=== PATIENT | male | born 1965 | race Caucasian/White ===

== ENCOUNTER 2018-07-03 07:41 | Inpatient (IN) | payer OTHER | END 2018-07-06 09:31 | disposition home or self-care (01) | LOC: YASAS 07:41 → Y6N 09:42 ==

== ENCOUNTER 2018-10-25 12:02 | Inpatient (IN) | payer OTHER ==
[2018-10-25 12:25] VITALS: BMI 25.9
--- NOTE | 2018-10-25 13:45 | HP ---
COWS - Scale Resting Pulse: 1= [place] 81-100 Sweatin= Chills/Flushing Restless Observation: 1= Difficult to Sit Still Pupil Size: 0= Normal to Room Light Bone or Joint Aches: 1= Mild Discomfort Runny Nose/ Eye Tearin= Runny Nose/Eyes GI Upset > 30mins: 3= Vomiting/Diarrhea Tremor Observation: 1= Tremor [place], Not Seen Yawning Observation: 1= 1-2x During Session Anxiety or Irritability: 1=Feels Anxious/Irritable Goose Flesh Skin: 0=Smooth Skin COWS Score: 12 CIWA Score - Admission Criteria OASAS Guidelines: Admission for Medically Managed Detox: Requires at least one of the followin. CIWA greater than 12 2. Seizures within the past 24 hours 3. Delirium tremens within the past 24 hours 4. Hallucinations within the past 24 hours 5. Acute intervention needed for co occurring medical disorder 6. Acute intervention needed for co occurring psychiatric disorder 7. Severe withdrawal that cannot be handled at a lower level of care (continued vomiting, continued diarrhea, abnormal vital signs) requiring intravenous medication and/or fluids 8. Admission ROS [facility] Chief Complaint: heroin detox Allergies/Adverse Reactions: Allergies Allergy/AdvReac Type Severity Reaction Status Date / Time No Known Allergies Allergy Verified 10/25/18 12:18 History of Present Illness: Patient is a 53 yo M with no known PMHx, presenting here for heroin detox. Sniffs 15 bags a day over the last couple of months. Denies IV drug use. Last use this morning, about 5 bags. Says he was clean for 2 years and relapsed on Mothers day when his mother . Never overdosed. Does not carry a narcan pen with him. Smokes 1 PPD. currently unemployed. Lives in an apartment with no his girlfriend. - Ebola screening Have you traveled outside of the country in the last 21 days: No Have you had contact with anyone from an Ebola affected area: No Do you have a fever: No - Review of Systems Constitutional: Loss of Appetite, Unintentional Wgt. Loss Respiratory: denies: Cough, Shortness of Breath, Wheezing Cardiac: denies: Chest Pain, Palpitations Patient History - Patient Medical History Hx Anemia: No Hx Asthma: No Hx Chronic Obstructive Pulmonary Disease (COPD): No Hx Cancer: No Hx Cardiac Disorders: No Hx Congestive Heart Failure: No Hx Hypertension: No Hx Hypercholesterolemia: No Hx Pacemaker: No HX Cerebrovascular Accident: No Hx Seizures: No Hx Dementia: No Hx Diabetes: No Hx Gastrointestinal Disorders: No Hx Liver Disease: No Hx Genitourinary Disorders: No Hx Sexually Transmitted Disorders: No Hx Renal Disease (ESRD): No Hx Thyroid Disease: No Hx Human Immunodeficiency Virus (HIV): No (last 04/25 negative) Hx Hepatitis C: No Hx Depression: No Hx Suicide Attempt: No Hx Bipolar Disorder: No Hx Schizophrenia: No - Patient Surgical History Past Surgical History: No Hx Neurologic Surgery: No Hx Cataract Extraction: No Hx Cardiac Surgery: No Hx Lung Surgery: No Hx Breast Surgery: No Hx Breast Biopsy: No Hx Abdominal Surgery: No Hx Appendectomy: No Hx Cholecystectomy: No Hx Genitourinary Surgery: No Hx Section: No Hx Orthopedic Surgery: No Anesthesia Reaction: No - PPD History Date: 07/05/18 Results: 0 mm - Smoking Cessation Smoking history: Current every day smoker Have you smoked in the past 12 months: Yes Aproximately how many cigarettes per day: 20 Hx Chewing Tobacco Use: No Initiated information on smoking cessation: Yes 'Breaking Loose' booklet given: 10/25/18 - Substances abused Heroin Substance route: Inhalation Frequency: Daily Amount used: 15 bags Age of first use: 18 Date of last use: 10/25/18 Family Disease History - Family Disease History Family Disease History: Other: Mother (dawood,) Admission Physical Exam BHS - Vital Signs Vital Signs: Vital Signs - 24 hr 10/25/18 12:19 Temperature 97.3 F L Pulse Rate 66 Respiratory 20 Rate Blood Pressure 116/75 - Physical General Appearance: Yes: No Apparent Distress Respiratory: Yes: Lungs Clear, No Respiratory Distress, No Accessory Muscle Use Cardiology: Yes: Regular Rhythm, S1, S2 Abdominal: Yes: Non Tender, Soft Extremities: No: Swelling - Diagnostic (1) Heroin abuse Current Visit: Yes Status: Acute (2) Weight loss Current Visit: No Status: Acute (3) Nicotine dependence Current Visit: No Status: Chronic Qualifiers: Nicotine product type: cigarettes Substance use status: uncomplicated Qualified Code(s): F17.210 - Nicotine dependence, cigarettes, uncomplicated Breathalyzer - Breathalyzer Breathalyzer: 0 Urine Drug Screen - Test Device Lot number: [id number] Expiration date: 07/07/20 - Control Is test valid?: Yes - Results Drug screen NEGATIVE: Yes Urine drug screen results: MOP-Opiates, OXY-Oxycodone Inpatient Rehab Admission - Rehab Decision to Admit Inpatient rehab admission?: No
[2018-10-25] MEDS ORDERED: BISMUTH SUBSALICYLATE 524 MG/30 ML UD PO PRN (14:05)
[2018-10-25] MEDS ORDERED: MAG HYDROX/AL HYDROX/SIMETH 30 ML UNIT-DOSE CUP PO PRN (14:05)
[2018-10-25] MEDS ORDERED: MAGNESIUM HYDROX 2400MG/30ML ORAL SUSPENSION 30 ML CUP PO PRN (14:05)
[2018-10-25] MEDS ORDERED: MENTHOL/PHENOL 1 EACH UD MM PRN (14:05)
[2018-10-25] MEDS ORDERED: ACETAMINOPHEN 325 MG TABLET (FP) PO PRN ×2 (14:05)
[2018-10-25] MEDS ORDERED: cloNIDine HCL 0.1 MG TABLET PO PRN (14:05)
[2018-10-25] MEDS ORDERED: IBUPROFEN 400 MG TABLET (FP) PO PRN (14:05)
[2018-10-25] MEDS ORDERED: MAGNESIUM CITRATE 300 ML BOTTLE PO PRN (14:05)
[2018-10-25] MEDS ORDERED: NICOTINE POLACRILEX 4 MG GUM BUC PRN (14:09)
--- NOTE | 2018-10-25 14:13 | PN ---
Teaching Attending Note Name of Resident: Yasmani Salgado ATTENDING PHYSICIAN STATEMENT I saw and evaluated the patient. I reviewed the resident's note and discussed the case with the resident. I agree with the resident's findings and plan as documented. SUBJECTIVE: 53 yo here for heroin detox- 15 bags/day IH, no OD, no narcan kit. Relapsed 3 months ago. wants to stop. OBJECTIVE: Vital Signs - 24 hr 10/25/18 12:19 Temperature 97.3 F L Pulse Rate 66 Respiratory 20 Rate Blood Pressure 116/75 alert and oriented tremulous ASSESSMENT AND PLAN: Opioid use disorder- start methadone detox protocol
[2018-10-25] MEDS ORDERED: METHADONE HCL 10 MG TABLET (FOR DETOX USE ONLY) PO ONE (15:00)
[2018-10-25] MEDS: hydrOXYzine PAMOATE 25 MG CAPSULE (FP) PO PRN ×2 (15:26→22:21)
[2018-10-25 17:16] LABS: ALBUMIN 4.3 g/dl (3.4-5.0); BILIRUBIN,TOTAL 0.8 mg/dL (0.2-1); BLOOD UREA NITROGEN 9.6 mg/dL (7-18); CALCIUM 9.5 mg/dL (8.5-10.1); CREATININE 0.8 mg/dL (0.55-1.3); POTASSIUM 4.2 mmol/L (3.5-5.1); TOT PROT 7.7 g/dl (6.4-8.2)
[2018-10-25 17:26] LABS: HEMATOCRIT 44.3 % (35.4-49); HEMOGLOBIN 14.8 GM/dL (11.7-16.9); MCH 28.5 pg (25.7-33.7); MCHC 33.4 g/dl (32.0-35.9); MEAN CELL VOLUME 85.3 fl (80-96); PLATELET COUNT 282 K/MM3 (134-434); RBC 5.19 M/mm3 (4.00-5.60); RDW 14.2 % (11.9-15.9); WHITE BLOOD COUNT 9.7 K/mm3 (4.0-10.0)
[2018-10-25] MEDS: METHOCARBAMOL 500 MG TABLET PO PRN (22:21)
[2018-10-25] MEDS: THIAMINE HCL 100 MG TABLET (FP) PO SCH (22:21)
[2018-10-26] MEDS ORDERED: METHADONE HCL 10 MG TABLET (FOR DETOX USE ONLY) ONE (08:50)
[2018-10-26] MEDS ORDERED: METHADONE HCL 5 MG TABLET (FOR DETOX USE ONLY) ONE (08:51)
[2018-10-26] MEDS ORDERED: METHADONE (DETOX) 20 MG, METHADONE (DETOX) 5 MG PO ONE (10:00)
[2018-10-26] MEDS: PRENATAL VITAMINS W/ FOLIC ACID TABLET (FP) PO SCH (10:25)
--- NOTE | 2018-10-26 14:44 | PN ---
BHS COWS - Scale Resting Pulse: 0= [place] 80 or Below Sweatin= Chills/Flushing Restless Observation: 0= Sits Still Pupil Size: 1= Pupils >than Normal Bone or Joint Aches: 1= Mild Discomfort Runny Nose/ Eye Tearin= Nasal Congestion GI Upset > 30mins: 1= Stomach Cramp Tremor Observation of Outstretched Hands: 2= Slight Tremor Visible Yawning Observation: 1= 1-2x During Session Anxiety or Irritability: 2=Irritable/Anxious Goose Flesh Skin: 3=Piloerection COWS Score: 13 BHS Progress Note (SOAP) Subjective: body aches tremor anxiety Objective: 11/02/18 09:03 Vital Signs Temperature 97.4 F L 10/30/18 07:07 Pulse Rate 80 10/30/18 07:07 Respiratory Rate 18 10/30/18 07:07 Blood Pressure 90/55 L 10/30/18 07:07 O2 Sat by Pulse Oximetry (%) Laboratory Last Values WBC 9.7 K/mm3 (4.0-10.0) 10/25/18 14:45 RBC 5.19 M/mm3 (4.00-5.60) 10/25/18 14:45 Hgb 14.8 GM/dL (11.7-16.9) 10/25/18 14:45 Hct 44.3 % (35.4-49) 10/25/18 14:45 MCV 85.3 fl (80-96) 10/25/18 14:45 MCH 28.5 pg (25.7-33.7) 10/25/18 14:45 MCHC 33.4 g/dl (32.0-35.9) 10/25/18 14:45 RDW 14.2 % (11.9-15.9) 10/25/18 14:45 Plt Count 282 K/MM3 (134-434) 10/25/18 14:45 MPV 9.0 fl (7.5-11.1) 10/25/18 14:45 Platelet Comment 10/25/18 14:45 Sodium 140 mmol/L (136-145) 10/25/18 14:45 Potassium 4.2 mmol/L (3.5-5.1) 10/25/18 14:45 Chloride 101 mmol/L (98-107) 10/25/18 14:45 Carbon Dioxide 33 mmol/L (21-32) H 10/25/18 14:45 Anion Gap 5 MMOL/L (8-16) L 10/25/18 14:45 BUN 9.6 mg/dL (7-18) 10/25/18 14:45 Creatinine 0.8 mg/dL (0.55-1.3) 10/25/18 14:45 Est GFR (CKD-EPI)AfAm 119.88 10/25/18 14:45 Est GFR (CKD-EPI)NonAf 103.43 10/25/18 14:45 Random Glucose 86 mg/dL (74-106) 10/25/18 14:45 Calcium 9.5 mg/dL (8.5-10.1) 10/25/18 14:45 Total Bilirubin 0.8 mg/dL (0.2-1) 10/25/18 14:45 AST 20 U/L (15-37) 10/25/18 14:45 ALT 41 U/L (13-61) 10/25/18 14:45 Alkaline Phosphatase 60 U/L (45-117) 10/25/18 14:45 Total Protein 7.7 g/dl (6.4-8.2) 10/25/18 14:45 Albumin 4.3 g/dl (3.4-5.0) 10/25/18 14:45 RPR Titer Nonreactive (NONREACTIVE) 10/25/18 14:45 lab noted Assessment: 11/02/18 09:03 withdrawal sx Plan: continue detox
[2018-10-26] MEDS: MELATONIN 5 MG TABLETS PO PRN (22:37)
[2018-10-26] MEDS: THIAMINE HCL 100 MG TABLET (FP) PO SCH (22:37)
[2018-10-26] MEDS: hydrOXYzine PAMOATE 25 MG CAPSULE (FP) PO PRN (22:37)
[2018-10-27] MEDS ORDERED: METHADONE HCL 10 MG TABLET (FOR DETOX USE ONLY) PO ONE (10:00)
[2018-10-27] MEDS: PRENATAL VITAMINS W/ FOLIC ACID TABLET (FP) PO SCH (10:07)
--- NOTE | 2018-10-27 18:30 | PN ---
BHS COWS - Scale Resting Pulse: 1= [place] 81-100 Sweatin= Chills/Flushing Restless Observation: 1= Difficult to Sit Still Pupil Size: 0= Normal to Room Light Bone or Joint Aches: 0= None Runny Nose/ Eye Tearin= None GI Upset > 30mins: 0= None Tremor Observation of Outstretched Hands: 0= None Yawning Observation: 1= 1-2x During Session Anxiety or Irritability: 2=Irritable/Anxious Goose Flesh Skin: 3=Piloerection COWS Score: 9 BHS Progress Note (SOAP) Subjective: Sweating, Anxious, Fatigue. Objective: PATIENT A & O X 3, OBSERVED AMBULATING ON DETOX UNIT UNASSISTED. IN NO ACUTE DISTRESS. 10/27/18 18:29 Vital Signs Temperature 98.4 F 10/27/18 17:42 Pulse Rate 94 H 10/27/18 17:42 Respiratory Rate 18 10/27/18 17:42 Blood Pressure 111/70 10/27/18 17:42 O2 Sat by Pulse Oximetry (%) Laboratory Tests 10/25/18 10/25/18 10/25/18 14:45 14:45 14:45 WBC 9.7 RBC 5.19 Hgb 14.8 Hct 44.3 MCV 85.3 MCH 28.5 MCHC 33.4 RDW 14.2 Plt Count 282 MPV 9.0 Platelet Comment Sodium 140 Potassium 4.2 Chloride 101 Carbon Dioxide 33 H Anion Gap 5 L BUN 9.6 Creatinine 0.8 Est GFR (CKD-EPI)AfAm 119.88 Est GFR (CKD-EPI)NonAf 103.43 Random Glucose 86 Calcium 9.5 Total Bilirubin 0.8 AST 20 ALT 41 Alkaline Phosphatase 60 Total Protein 7.7 Albumin 4.3 RPR Titer Nonreactive LABS NOTED. Assessment: 10/27/18 18:30 WITHDRAWAL SYMPTOMS. Plan: CONTINUE DETOX.
[2018-10-27] MEDS: THIAMINE HCL 100 MG TABLET (FP) PO SCH (22:45)
[2018-10-28] MEDS ORDERED: METHADONE HCL 5 MG TABLET (FOR DETOX USE ONLY) ONE (08:27)
[2018-10-28] MEDS ORDERED: METHADONE HCL 10 MG TABLET (FOR DETOX USE ONLY) ONE (08:27)
[2018-10-28] MEDS ORDERED: METHADONE (DETOX) 10 MG, METHADONE (DETOX) 5 MG PO ONE (10:00)
[2018-10-28] MEDS: PRENATAL VITAMINS W/ FOLIC ACID TABLET (FP) PO SCH (10:09)
--- NOTE | 2018-10-28 16:36 | PN ---
BHS COWS - Scale Resting Pulse: 0= [place] 80 or Below Sweatin= Chills/Flushing Restless Observation: 1= Difficult to Sit Still Pupil Size: 0= Normal to Room Light Bone or Joint Aches: 0= None Runny Nose/ Eye Tearin= None GI Upset > 30mins: 0= None Tremor Observation of Outstretched Hands: 0= None Yawning Observation: 1= 1-2x During Session Anxiety or Irritability: 2=Irritable/Anxious Goose Flesh Skin: 3=Piloerection COWS Score: 8 BHS Progress Note (SOAP) Subjective: Sweating, Fatigue, Anxious. Objective: PATIENT A & O X 3, OBSERVED AMBULATING ON DETOX UNIT UNASSISTED. IN NO ACUTE DISTRESS. 10/28/18 16:37 Vital Signs Temperature 99.0 F 10/28/18 13:36 Pulse Rate 63 10/28/18 13:36 Respiratory Rate 18 10/28/18 13:36 Blood Pressure 105/75 10/28/18 13:36 O2 Sat by Pulse Oximetry (%) Laboratory Tests 10/25/18 10/25/18 10/25/18 14:45 14:45 14:45 WBC 9.7 RBC 5.19 Hgb 14.8 Hct 44.3 MCV 85.3 MCH 28.5 MCHC 33.4 RDW 14.2 Plt Count 282 MPV 9.0 Platelet Comment Sodium 140 Potassium 4.2 Chloride 101 Carbon Dioxide 33 H Anion Gap 5 L BUN 9.6 Creatinine 0.8 Est GFR (CKD-EPI)AfAm 119.88 Est GFR (CKD-EPI)NonAf 103.43 Random Glucose 86 Calcium 9.5 Total Bilirubin 0.8 AST 20 ALT 41 Alkaline Phosphatase 60 Total Protein 7.7 Albumin 4.3 RPR Titer Nonreactive LABS NOTED. Assessment: 10/28/18 16:37 WITHDRAWAL SYMPTOMS. Plan: CONTINUE DETOX. INCREASE DAILY PO WATER INTAKE.
[2018-10-28] MEDS: MELATONIN 5 MG TABLETS PO PRN (22:48)
[2018-10-28] MEDS: THIAMINE HCL 100 MG TABLET (FP) PO SCH (22:48)
[2018-10-28] MEDS: METHOCARBAMOL 500 MG TABLET PO PRN (22:48)
[2018-10-29] MEDS ORDERED: METHADONE HCL 10 MG TABLET (FOR DETOX USE ONLY) PO ONE (10:00)
[2018-10-29] MEDS: PRENATAL VITAMINS W/ FOLIC ACID TABLET (FP) PO SCH (10:10)
--- NOTE | 2018-10-29 13:22 | PN ---
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 pharmacy Objective: 10/29/18 13:20 Vital Signs Temperature 97.0 F L 10/29/18 13:12 Pulse Rate 66 10/29/18 13:12 Respiratory Rate 18 10/29/18 13:12 Blood Pressure 100/66 10/29/18 13:12 O2 Sat by Pulse Oximetry (%) Laboratory Last Values WBC 9.7 K/mm3 (4.0-10.0) 10/25/18 14:45 RBC 5.19 M/mm3 (4.00-5.60) 10/25/18 14:45 Hgb 14.8 GM/dL (11.7-16.9) 10/25/18 14:45 Hct 44.3 % (35.4-49) 10/25/18 14:45 MCV 85.3 fl (80-96) 10/25/18 14:45 MCH 28.5 pg (25.7-33.7) 10/25/18 14:45 MCHC 33.4 g/dl (32.0-35.9) 10/25/18 14:45 RDW 14.2 % (11.9-15.9) 10/25/18 14:45 Plt Count 282 K/MM3 (134-434) 10/25/18 14:45 MPV 9.0 fl (7.5-11.1) 10/25/18 14:45 Platelet Comment 10/25/18 14:45 Sodium 140 mmol/L (136-145) 10/25/18 14:45 Potassium 4.2 mmol/L (3.5-5.1) 10/25/18 14:45 Chloride 101 mmol/L (98-107) 10/25/18 14:45 Carbon Dioxide 33 mmol/L (21-32) H 10/25/18 14:45 Anion Gap 5 MMOL/L (8-16) L 10/25/18 14:45 BUN 9.6 mg/dL (7-18) 10/25/18 14:45 Creatinine 0.8 mg/dL (0.55-1.3) 10/25/18 14:45 Est GFR (CKD-EPI)AfAm 119.88 10/25/18 14:45 Est GFR (CKD-EPI)NonAf 103.43 10/25/18 14:45 Random Glucose 86 mg/dL (74-106) 10/25/18 14:45 Calcium 9.5 mg/dL (8.5-10.1) 10/25/18 14:45 Total Bilirubin 0.8 mg/dL (0.2-1) 10/25/18 14:45 AST 20 U/L (15-37) 10/25/18 14:45 ALT 41 U/L (13-61) 10/25/18 14:45 Alkaline Phosphatase 60 U/L (45-117) 10/25/18 14:45 Total Protein 7.7 g/dl (6.4-8.2) 10/25/18 14:45 Albumin 4.3 g/dl (3.4-5.0) 10/25/18 14:45 RPR Titer Nonreactive (NONREACTIVE) 10/25/18 14:45 lab noted Assessment: 10/29/18 13:21 opiate withdrawal sx Plan: continue methadone detox regimen
[2018-10-29] MEDS ORDERED: LIDOCAINE 5% TOPICAL PATCH TP SCH (13:30)
[2018-10-29] MEDS ORDERED: SODIUM CHLORIDE NASAL SPRAY 44 ML BOTTLE NS SCH (14:00)
[2018-10-29] MEDS ORDERED: LIDOCAINE PATCH REMOVAL MC SCH (22:00)
[2018-10-29] MEDS: THIAMINE HCL 100 MG TABLET (FP) PO SCH (22:10)
[2018-10-29] MEDS: MELATONIN 5 MG TABLETS PO PRN (22:10)
[2018-10-29] MEDS: METHOCARBAMOL 500 MG TABLET PO PRN (22:10)
[2018-10-29] MEDS: hydrOXYzine PAMOATE 25 MG CAPSULE (FP) PO PRN (22:10)
[2018-10-30] MEDS ORDERED: METHADONE HCL 5 MG TABLET (FOR DETOX USE ONLY) PO ONE (06:00)
[2018-10-30 07:08] VITALS: BP 90/55; PULSE 80; TEMP 97.4
--- NOTE | 2018-10-30 12:18 | DS ---
[facility] Detox Discharge Summary Admission Date: 10/25/18 Discharge Date: 10/30/18 - History Present History: Opioid Dependence Additional Comments: did well with methadone detox regimen no complication through out the detox stay patient is alert oriented x 3 cardiac S1S2 regular rate rhythm respiratory clear lung sound bilaterally on auscultatin extremities full range of motion - Physical Exam Results Vital Signs: Vital Signs Temperature 97.4 F L 10/30/18 07:07 Pulse Rate 80 10/30/18 07:07 Respiratory Rate 18 10/30/18 07:07 Blood Pressure 90/55 L 10/30/18 07:07 O2 Sat by Pulse Oximetry (%) Pertinent Admission Physical Exam Findings: opiate withdrawal sx Laboratory Last Values WBC 9.7 K/mm3 (4.0-10.0) 10/25/18 14:45 RBC 5.19 M/mm3 (4.00-5.60) 10/25/18 14:45 Hgb 14.8 GM/dL (11.7-16.9) 10/25/18 14:45 Hct 44.3 % (35.4-49) 10/25/18 14:45 MCV 85.3 fl (80-96) 10/25/18 14:45 MCH 28.5 pg (25.7-33.7) 10/25/18 14:45 MCHC 33.4 g/dl (32.0-35.9) 10/25/18 14:45 RDW 14.2 % (11.9-15.9) 10/25/18 14:45 Plt Count 282 K/MM3 (134-434) 10/25/18 14:45 MPV 9.0 fl (7.5-11.1) 10/25/18 14:45 Platelet Comment 10/25/18 14:45 Sodium 140 mmol/L (136-145) 10/25/18 14:45 Potassium 4.2 mmol/L (3.5-5.1) 10/25/18 14:45 Chloride 101 mmol/L (98-107) 10/25/18 14:45 Carbon Dioxide 33 mmol/L (21-32) H 10/25/18 14:45 Anion Gap 5 MMOL/L (8-16) L 10/25/18 14:45 BUN 9.6 mg/dL (7-18) 10/25/18 14:45 Creatinine 0.8 mg/dL (0.55-1.3) 10/25/18 14:45 Est GFR (CKD-EPI)AfAm 119.88 10/25/18 14:45 Est GFR (CKD-EPI)NonAf 103.43 10/25/18 14:45 Random Glucose 86 mg/dL (74-106) 10/25/18 14:45 Calcium 9.5 mg/dL (8.5-10.1) 10/25/18 14:45 Total Bilirubin 0.8 mg/dL (0.2-1) 10/25/18 14:45 AST 20 U/L (15-37) 10/25/18 14:45 ALT 41 U/L (13-61) 10/25/18 14:45 Alkaline Phosphatase 60 U/L (45-117) 10/25/18 14:45 Total Protein 7.7 g/dl (6.4-8.2) 10/25/18 14:45 Albumin 4.3 g/dl (3.4-5.0) 10/25/18 14:45 RPR Titer Nonreactive (NONREACTIVE) 10/25/18 14:45 lab noted - Treatment Hospital Course: Detox Protocol Followed, Detoxed Safely, Responded well, Discharged Condition Good, Rehab Referral Accepted Patient [facility] - Medication Discharge Medications: Ambulatory Orders Naloxone HCl [Narcan] 4 mg NS ASDIR PRN #1 spray 10/29/18 - Diagnosis (1) Opioid dependence with withdrawal Status: Acute (2) Nicotine dependence Status: Acute Qualifiers: Nicotine product type: cigarettes Substance use status: in withdrawal Qualified Code(s): F17.213 - Nicotine dependence, cigarettes, with withdrawal - AMA Did Patient Leave Against Medical Advice: No COWS (PN) - Opiate Withdrawal Resting Pulse: 0= [place] 80 or Below Sweatin= Chills/Flushing Restless Observation: 0= Sits Still Pupil Size: 0= Normal to Room Light Bone or Joint Aches: 0= None Runny Nose/ Eye Tearin= None GI Upset > 30mins: 0= None Tremor Observation of Outstretched Hands: 1= Tremor [place], Not Seen Yawning Observation: 0= None Anxiety or Irritability: 1=Feels Anxious/Irritable Goose Flesh Skin: 0=Smooth Skin COWS Score: 3
== END 2018-10-30 08:51 | disposition home or self-care (01) | DRG 773 ==
LOC: YASAS 12:02 → Y3N 14:41
PROVIDERS: ADMIT Surgery; ATTEND Surgery
PROC: HZ2ZZZZ Detoxification Services for Substance Abuse Treatment (ICD-10-PCS; principal; 2018-10-25)
DX: F11.23 Opioid dependence with withdrawal (principal); F17.213 Nicotine dependence, cigarettes, with withdrawal; R63.4 Abnormal weight loss; Z68.26 Body mass index [BMI] 26.0-26.9, adult
CPT/HCPCS: 36415; 80053; 85027; 86593

== ENCOUNTER 2019-11-01 10:19 | Inpatient (IN) | payer OTHER ==
--- OUTSIDE RECORDS SUMMARY | 2019-11-01 10:26 | XMS ---
:1965 Author Organization [facility] Support Name Relationship Address Phone UE Unavailable Unavailable Unavailable [facility] [employer] Unavailable [facility] [place] [address] [employer] [address] [address] Re-disclosure Warning The records that you are about to access may contain information from federally- assisted alcohol or drug abuse programs. If such information is present, then the following federally mandated warning applies: This information has been disclosed to you from records protected by federal confidentiality rules (42 CFR part 2). The federal rules prohibit you from making any further disclosure of this information unless further disclosure is expressly permitted by the written consent of the person to whom it pertains or as otherwise permitted by 42 CFR part 2. A general authorization for the release of medical or other information is NOT sufficient for this purpose. The Federal rules restrict any use of the information to criminally investigate or prosecute any alcohol or drug abuse patient.The records that you are about to access may contain highly sensitive health information, the redisclosure of which is protected by Article 27-F of the [facility] Public Health law. If you continue you may haveaccess to information: Regarding HIV / AIDS; Provided by facilities licensed or operated by the [facility] Office of Mental Health; or Provided by the [facility] Office for People With Developmental Disabilities. If such information is present, then the following [facility] mandated warning applies: This information has been disclosed to you from confidential records which are protected by state law. State law prohibits you from making any further disclosure of this information without the specific written consent of the person to whom it pertains, or as otherwise permitted by law. Any unauthorized further disclosure in violation of state law may result in a fine or fpc sentence or both. A general authorization for the release of medical or other information is NOT sufficient authorization for further disclosure. Insurance Providers Payer name Policy type Policy ID Covered Covered democrat's Policy P yasmine / Coverage democrat ID relationship to [place] [employer] ormation type [place] MEDICAID [id number] SP [id number] Claritza LEDEZMA [id number] CONSULTANTS SELF PAY SP INSURANCE [facility] [id number] SP [id number] AETNA PPO [id number] SP [id number] CIGNA [id number] SP [id number] HEALTHCARE PPO
--- NOTE | 2019-11-01 10:32 | BHS.RME ---
Substance Use & Tx History - Substance Use History Heroin Substance amount: 3-4 bags Frequency of use: Daily Substance route: Inhalation (ex: sniffing or snorting) Date of Last Use: 11/01/19 (First use age 18y. No OD, Narcan at home but not sure where it is) Nicotine Substance amount: one pack Frequency of use: Daily Substance route: Smoking Date of Last Use: 11/01/19 - Last Treatment Date of last treatment: Oct 2018, completed detox Treatment type: Substance Use Disorder (JOHN) Where was last treatment: Detox Physical/Psych/Mental Status - Behavior General Behavior: Increased activity (restlessness, agitation) Eye Contact: Normal - Cooperativeness Cooperativeness: Cooperative - Thinking Thought Processes: Tight Thought content: Future oriented - Physical Health Problems Is patient presently having any pain?: No Does patient presently have any injuries (include location): Yes (fell yesterday in an elevator struck head, no LOC) Does patient currently have a fever: No COWS - Scale Resting Pulse: 1= [place] 81-100 Sweatin=Flushed/Facial Moisture Restless Observation: 3= Extraneous Movement Pupil Size: 0= Normal to Room Light Bone or Joint Aches: 1= Mild Discomfort Runny Nose/ Eye Tearin= Nasal Congestion GI Upset > 30mins: 0= None Tremor Observation: 0= None Yawning Observation: 0= None Anxiety or Irritability: 1=Feels Anxious/Irritable Goose Flesh Skin: 0=Smooth Skin COWS Score: 9
[2019-11-01 12:20] VITALS: BMI 26.6
--- NOTE | 2019-11-01 12:48 | HP ---
COWS - Scale Resting Pulse: 1= [place] 81-100 Sweatin=Flushed/Facial Moisture Restless Observation: 3= Extraneous Movement Pupil Size: 0= Normal to Room Light Bone or Joint Aches: 1= Mild Discomfort Runny Nose/ Eye Tearin= Nasal Congestion GI Upset > 30mins: 0= None Tremor Observation: 0= None Yawning Observation: 0= None Anxiety or Irritability: 1=Feels Anxious/Irritable Goose Flesh Skin: 0=Smooth Skin COWS Score: 9 CIWA Score - Admission Criteria OASAS Guidelines: Admission for Medically Managed Detox: Requires at least one of the followin. CIWA greater than 12 2. Seizures within the past 24 hours 3. Delirium tremens within the past 24 hours 4. Hallucinations within the past 24 hours 5. Acute intervention needed for co occurring medical disorder 6. Acute intervention needed for co occurring psychiatric disorder 7. Severe withdrawal that cannot be handled at a lower level of care (continued vomiting, continued diarrhea, abnormal vital signs) requiring intravenous medication and/or fluids 8. Admitting History and Physical - Admission Chief Complaint: Pt is a 54 yo M presenting for opioid detox; "I've been struggling to get clean...I want to detox and do something long-term." History of Present Illness: Pt is a 54 yo M presenting for opioid detox; "I've been struggling to get clean...I want to detox and do something long-term." Last at [facility] from 10/25/18 - 10/30/18; finished detox but did not go to rehab. Pt reports periods of worsening opioid use and periods of being clean since. It has been worse after the of his mother and grandmother this past year. Pt reports good support (a sponsor and "running buddies) but states that he should have used them more when he was struggling. Pt usually sniffs heroin but yesterday he tried fentanyl. Pt unaware of dosage of his opioids and reports being "scared of overdose." Pt meets criteria as full extent of withdrawal obscured by recent use as well as high risk for overdose. PMH - reports no medical history PSH - umbilical hernia surgery 1 month ago. Psych - none Soc/Domiciled - lives with but reports "if I keep on going I will become homeless since my can't take it anymore." Legal - no - Substance Use History Heroin Substance amount: 3-4 bags Frequency of use: Daily Substance route: Inhalation (ex: sniffing or snorting) Date of Last Use: 11/01/19 (First use age 18y. No OD, Narcan at home but not sure where it is) Nicotine Substance amount: one pack Frequency of use: Daily Substance route: Smoking Date of Last Use: 11/01/19 - Last Treatment Date of last treatment: Oct 2018, completed detox Treatment type: Substance Use Disorder (JOHN) Where was last treatment: Detox History Source: Patient Limitations to Obtaining History: No Limitations - Smoking History Smoking history: Current every day smoker Have you smoked in the past 12 months: Yes Aproximately how many cigarettes per day: 20 - Alcohol/Substance Use Hx Alcohol Use: No Admission ROS S - HPI Allergies/Adverse Reactions: Allergies Allergy/AdvReac Type Severity Reaction Status Date / Time No Known Allergies Allergy Verified 11/01/19 11:57 - Ebola screening Have you traveled outside of the country in the last 21 days: No Have you been sick,other than usual withdrawal symptoms: No Do you have a fever: No - Review of Systems Constitutional: Changes in sleep (difficulty sleeping), Unintentional Wgt. Loss (30 lb wieght loss over the year) EENT: reports: No Symptoms Reported Respiratory: reports: No Symptoms reported Cardiac: reports: No Symptoms Reported GI: reports: No Symptoms Reported : reports: No Symptoms Reported Musculoskeletal: reports: No Symptoms Reported Integumentary: reports: No Symptoms Reported Neuro: reports: No Symptoms reported Endocrine: reports: No Symptoms Reported Hematology: reports: No Symptoms Reported Psychiatric: reports: Orientated x3 Patient History - Patient Medical History Hx Anemia: No Hx Asthma: No Hx Chronic Obstructive Pulmonary Disease (COPD): No Hx Cancer: No Hx Cardiac Disorders: No Hx Congestive Heart Failure: No Hx Hypertension: No Hx Hypercholesterolemia: No Hx Pacemaker: No HX Cerebrovascular Accident: No Hx Seizures: No Hx Dementia: No Hx Diabetes: No Hx Gastrointestinal Disorders: No Hx Liver Disease: No Hx Genitourinary Disorders: No Hx Sexually Transmitted Disorders: No Hx Renal Disease (ESRD): No Hx Thyroid Disease: No Hx Human Immunodeficiency Virus (HIV): No (last 04/25 negative) Hx Hepatitis C: No Hx Depression: No Hx Suicide Attempt: No Hx Bipolar Disorder: No Hx Schizophrenia: No - Patient Surgical History Past Surgical History: No Hx Neurologic Surgery: No Hx Cataract Extraction: No Hx Cardiac Surgery: No Hx Lung Surgery: No Hx Breast Surgery: No Hx Breast Biopsy: No Hx Abdominal Surgery: Yes (umbilical hernia 6 weeks ago) Hx Appendectomy: No Hx Cholecystectomy: No Hx Genitourinary Surgery: No Hx Section: No Hx Orthopedic Surgery: No Anesthesia Reaction: No - PPD History Previous Implant?: No Documented Results: Negative w/proof Implanted On Prior [facility] Admission?: Yes Date: 07/05/18 Results: negatitive - Reproductive History Patient : (n/a) - Smoking Cessation Smoking history: Current every day smoker Have you smoked in the past 12 months: Yes Aproximately how many cigarettes per day: 20 Cigars Per Day: 0 Hx Chewing Tobacco Use: No Initiated information on smoking cessation: Yes 'Breaking Loose' booklet given: 11/01/19 Admission Physical Exam [facility] - Vital Signs Vital Signs: Vital Signs - 24 hr 11/01/19 12:18 Temperature 97.5 F L Pulse Rate 93 H Respiratory 18 Rate Blood Pressure 110/69 - Physical General Appearance: Yes: No Apparent Distress, Nourished, Appropriately Dressed, Sweating (skin more flushed; not profusely sweating), Anxious (mildly anxious), Other (somnolent but arousable to conversation) HEENTM: Yes: EOMI, Hearing grossly Normal, Normocephalic, Normal Voice Respiratory: Yes: Lungs Clear, Normal Breath Sounds, No Respiratory Distress, No Accessory Muscle Use Neck: Yes: Supple, Trachea in good position Breast: Yes: Breast Exam Deferred Cardiology: Yes: Regular Rhythm, Regular Rate Abdominal: Yes: Normal Bowel Sounds, Non Tender, Flat, Soft Genitourinary: Yes: Other (deferred) Back: Yes: Normal Inspection Musculoskeletal: Yes: full range of Motion, Gait Steady Extremities: Yes: Normal Inspection, Normal Range of Motion, Non-Tender Neurological: Yes: Fully Oriented, Alert (pt somnolent but alert when name is called), Motor Strength 5/5 Integumentary: Yes: Normal Color, Dry, Warm Cleared for Admission S - Detox or Rehab [facility] Level of Care: Medically Managed Detox Regimen/Protocol: Methadone Breathalyzer - Breathalyzer Breathalyzer: 0 Urine Drug Screen - Test Device Lot number: [id number] Expiration date: 05/15/21 - Control Is test valid?: Yes - Results Drug screen NEGATIVE: No Urine drug screen results: RACHEL-Cocaine, MET-Methamphetamine, AMP-Amphetamines, FEN-Fentanyl, MOP-Opiates, OXY-Oxycodone, MTD-Methadone, BUP-Suboxone Inpatient Rehab Admission - Rehab Decision to Admit Inpatient rehab admission?: No
[2019-11-01] MEDS ORDERED: MAGNESIUM HYDROX 2400MG/30ML ORAL SUSPENSION 30 ML CUP PO PRN (13:05)
[2019-11-01] MEDS ORDERED: BISMUTH SUBSALICYLATE 524 MG/30 ML UD PO PRN (13:05)
[2019-11-01] MEDS ORDERED: ONDANSETRON *ODT* 4 MG TABLET SL PRN (13:05)
[2019-11-01] MEDS ORDERED: NICOTINE POLACRILEX 2 MG GUM BUC PRN (13:05)
[2019-11-01] MEDS ORDERED: ACETAMINOPHEN 325 MG TABLET (FP) PO PRN ×2 (13:05)
[2019-11-01] MEDS ORDERED: MAGNESIUM CITRATE 300 ML BOTTLE PO PRN (13:05)
[2019-11-01] MEDS ORDERED: MENTHOL/PHENOL 1 EACH UD MM PRN (13:05)
[2019-11-01] MEDS ORDERED: MAG HYDROX/AL HYDROX/SIMETH 30 ML UNIT-DOSE CUP PO PRN (13:05)
[2019-11-01] MEDS ORDERED: cloNIDine HCL 0.1 MG TABLET PO PRN (13:05)
[2019-11-01] MEDS ORDERED: IBUPROFEN 400 MG TABLET (FP) PO PRN (13:05)
--- NOTE | 2019-11-01 13:22 | PN ---
Teaching Attending Note Name of Resident: Dayana Zuluaga ATTENDING PHYSICIAN STATEMENT I saw and evaluated the patient. I reviewed the resident's note and discussed the case with the resident. I agree with the resident's findings and plan as documented. SUBJECTIVE: 54 yo with long h/o OUD, last here about a year ago, intermittent use since then. REcently relapsed after family deaths- Is now using several different opioids- sniffing, no IV no med problems and on no meds OBJECTIVE: Vital Signs - 24 hr 11/01/19 12:18 Temperature 97.5 F L Pulse Rate 93 H Respiratory 18 Rate Blood Pressure 110/69 ASSESSMENT AND PLAN: OUD- methadone detox per protocol
[2019-11-01] MEDS ORDERED: METHADONE HCL 10 MG TABLET (FOR DETOX USE ONLY) PO ONE (13:30)
[2019-11-01] MEDS ORDERED: hydrOXYzine PAMOATE 25 MG CAPSULE (FP) PO SCH (14:00)
[2019-11-01] MEDS: NICOTINE 21 MG/24 HOURS TOPICAL PATCH TD SCH (14:25)
--- NOTE | 2019-11-01 16:10 | EKG ---
Test Reason : Blood Pressure : / mmHG Vent. Rate : 069 BPM Atrial Rate : 069 BPM P-R Int : 130 ms QRS Dur : 090 ms QT Int : 386 ms P-R-T Axes : 040 024 009 degrees QTc Int : 413 ms NORMAL SINUS RHYTHM WITH SINUS ARRHYTHMIA NORMAL ECG NO PREVIOUS ECGS AVAILABLE Confirmed by BRODIE ROWLAND MD ([id number]) on 11/01/2019 4:10:42 PM Referred By: Confirmed By:BRODIE ROWLAND MD
[2019-11-01 17:31] LABS: HEMATOCRIT 36.8 % (35.4-49); HEMOGLOBIN 12.3 GM/dL (11.7-16.9); MCHC 33.4 g/dl (32.0-35.9); MEAN CELL VOLUME 86.7 fl (80-96); MEAN PLT VOLUME 9.2 fl (7.5-11.1); PLATELET COUNT 221 K/MM3 (134-434); RBC 4.24 M/mm3 (4.00-5.60); RDW 15.4 % (11.9-15.9); WHITE BLOOD COUNT 7.4 K/mm3 (4.0-10.0)
[2019-11-01 17:33] LABS: ALBUMIN 3.7 g/dl (3.4-5.0); BILIRUBIN,TOTAL 0.4 mg/dL (0.2-1); CALCIUM 9.1 mg/dL (8.5-10.1); CREATININE 0.8 mg/dL (0.55-1.3); TOT PROT 6.6 g/dl (6.4-8.2)
[2019-11-01] MEDS: hydrOXYzine PAMOATE 25 MG CAPSULE (FP) PO PRN (22:40)
[2019-11-01] MEDS: THIAMINE HCL 100 MG TABLET (FP) PO SCH (22:40)
[2019-11-01] MEDS: METHOCARBAMOL 500 MG TABLET PO PRN (22:40)
[2019-11-01] MEDS: MELATONIN 5 MG TABLETS PO SCH (22:41)
--- NOTE | 2019-11-02 08:36 | PN ---
Teaching Attending Note Name of Resident: Dayana Zuluaga ATTENDING PHYSICIAN STATEMENT I saw and evaluated the patient. I reviewed the resident's note and discussed the case with the resident. I agree with the resident's findings and plan as documented. SUBJECTIVE: OBJECTIVE: ASSESSMENT AND PLAN: 1. Opiate use disorder, withdrawal Plan 1. Methadone detox protocol, admit
[2019-11-02] MEDS ORDERED: METHADONE HCL 5 MG TABLET (FOR DETOX USE ONLY) ONE (08:49)
[2019-11-02] MEDS ORDERED: METHADONE HCL 10 MG TABLET (FOR DETOX USE ONLY) ONE (08:49)
[2019-11-02] MEDS ORDERED: METHADONE (DETOX) 20 MG, METHADONE (DETOX) 5 MG PO ONE (10:00)
[2019-11-02] MEDS: NICOTINE 21 MG/24 HOURS TOPICAL PATCH TD SCH (10:34)
[2019-11-02] MEDS: PRENATAL VITAMINS W/ FOLIC ACID TABLET (FP) PO SCH (10:34)
--- NOTE | 2019-11-02 14:58 | PN ---
BHS COWS - Scale Resting Pulse: 0= [place] 80 or Below Sweatin= Chills/Flushing Restless Observation: 1= Difficult to Sit Still Pupil Size: 0= Normal to Room Light Bone or Joint Aches: 2= Severe Diffuse Aches Runny Nose/ Eye Tearin= Nasal Congestion GI Upset > 30mins: 0= None Tremor Observation of Outstretched Hands: 1= Tremor Tilly, Not Seen Yawning Observation: 2= >3x During Session Anxiety or Irritability: 2=Irritable/Anxious Goose Flesh Skin: 0=Smooth Skin COWS Score: 10 BHS Progress Note (SOAP) Subjective: sweats shakes body aches restless Objective: 11/02/19 14:57 Vital Signs Temperature 98.2 F 11/02/19 13:00 Pulse Rate 70 11/02/19 13:00 Respiratory Rate 16 11/02/19 13:00 Blood Pressure 97/60 11/02/19 13:00 O2 Sat by Pulse Oximetry (%) 99 11/02/19 08:47 Laboratory Tests 11/01/19 11/01/19 11/01/19 13:00 13:00 13:00 WBC 7.4 RBC 4.24 Hgb 12.3 Hct 36.8 D MCV 86.7 MCH 29.0 MCHC 33.4 RDW 15.4 Plt Count 221 D MPV 9.2 Sodium 136 Potassium 4.0 Chloride 99 Carbon Dioxide 32 Anion Gap 5 L BUN 15.0 Creatinine 0.8 Est GFR (CKD-EPI)AfAm 119.04 Est GFR (CKD-EPI)NonAf 102.71 Random Glucose 135 H Calcium 9.1 Total Bilirubin 0.4 AST 36 ALT 42 Alkaline Phosphatase 57 Total Protein 6.6 Albumin 3.7 Syphilis Serology COVID-19 (ABHIJIT) HIV Ag/Ab Combo Qual Negative 11/01/19 11/01/19 13:00 13:00 WBC RBC Hgb Hct MCV MCH MCHC RDW Plt Count MPV Sodium Potassium Chloride Carbon Dioxide Anion Gap BUN Creatinine Est GFR (CKD-EPI)AfAm Est GFR (CKD-EPI)NonAf Random Glucose Calcium Total Bilirubin AST ALT Alkaline Phosphatase Total Protein Albumin Syphilis Serology Non-reactive COVID-19 (ABHIJIT) Not detected HIV Ag/Ab Combo Qual labs noted aaox3 ambulating no acute distress Assessment: 11/02/19 14:57 withdrawals abrasion noted on face; no s/s of infection bacitracin oint ordered Plan: continue detox bacitracin oint ordered
[2019-11-02] MEDS: BACITRACIN 0.9 GM PACKET TP SCH (15:11)
[2019-11-02] MEDS: MELATONIN 5 MG TABLETS PO SCH (22:25)
[2019-11-02] MEDS: METHOCARBAMOL 500 MG TABLET PO PRN (22:25)
[2019-11-02] MEDS: hydrOXYzine PAMOATE 25 MG CAPSULE (FP) PO PRN (22:25)
[2019-11-02] MEDS: THIAMINE HCL 100 MG TABLET (FP) PO SCH (22:25)
[2019-11-03] MEDS ORDERED: METHADONE HCL 10 MG TABLET (FOR DETOX USE ONLY) PO ONE (10:00)
[2019-11-03] MEDS: BACITRACIN 0.9 GM PACKET TP SCH (10:27)
[2019-11-03] MEDS: METHOCARBAMOL 500 MG TABLET PO PRN (10:28)
[2019-11-03] MEDS: PRENATAL VITAMINS W/ FOLIC ACID TABLET (FP) PO SCH (10:28)
[2019-11-03] MEDS: NICOTINE 21 MG/24 HOURS TOPICAL PATCH TD SCH (10:28)
--- NOTE | 2019-11-03 17:44 | PN ---
BHS COWS - Scale Resting Pulse: 0= [place] 80 or Below Sweatin= Chills/Flushing Restless Observation: 0= Sits Still Pupil Size: 0= Normal to Room Light Bone or Joint Aches: 1= Mild Discomfort Runny Nose/ Eye Tearin= None GI Upset > 30mins: 0= None Tremor Observation of Outstretched Hands: 0= None Yawning Observation: 1= 1-2x During Session Anxiety or Irritability: 2=Irritable/Anxious Goose Flesh Skin: 3=Piloerection COWS Score: 8 BHS Progress Note (SOAP) Subjective: Fatigue, Interrupted Sleep, Body Aches. Objective: Patient A & O X 3; In No Acute Distress. 11/03/19 17:44 Vital Signs Temperature 98.1 F 11/03/19 12:42 Pulse Rate 63 11/03/19 12:42 Respiratory Rate 16 11/03/19 12:42 Blood Pressure 99/58 L 11/03/19 12:42 O2 Sat by Pulse Oximetry (%) 94 L 11/03/19 06:14 Laboratory Tests 11/01/19 11/01/19 11/01/19 13:00 13:00 13:00 WBC 7.4 RBC 4.24 Hgb 12.3 Hct 36.8 D MCV 86.7 MCH 29.0 MCHC 33.4 RDW 15.4 Plt Count 221 D MPV 9.2 Sodium 136 Potassium 4.0 Chloride 99 Carbon Dioxide 32 Anion Gap 5 L BUN 15.0 Creatinine 0.8 Est GFR (CKD-EPI)AfAm 119.04 Est GFR (CKD-EPI)NonAf 102.71 Random Glucose 135 H Calcium 9.1 Total Bilirubin 0.4 AST 36 ALT 42 Alkaline Phosphatase 57 Total Protein 6.6 Albumin 3.7 Syphilis Serology COVID-19 (ABHIJIT) HIV Ag/Ab Combo Qual Negative 11/01/19 11/01/19 13:00 13:00 WBC RBC Hgb Hct MCV MCH MCHC RDW Plt Count MPV Sodium Potassium Chloride Carbon Dioxide Anion Gap BUN Creatinine Est GFR (CKD-EPI)AfAm Est GFR (CKD-EPI)NonAf Random Glucose Calcium Total Bilirubin AST ALT Alkaline Phosphatase Total Protein Albumin Syphilis Serology Non-reactive COVID-19 (ABHIJIT) Not detected HIV Ag/Ab Combo Qual Lab Results noted. Assessment: 11/03/19 17:45 WITHDRAWAL SYMPTOMS. Plan: Continue Detox. Increase Daily Oral Water Intake.
[2019-11-03] MEDS: THIAMINE HCL 100 MG TABLET (FP) PO SCH (22:49)
[2019-11-03] MEDS: MELATONIN 5 MG TABLETS PO SCH (22:49)
[2019-11-03] MEDS: hydrOXYzine PAMOATE 25 MG CAPSULE (FP) PO PRN (22:51)
[2019-11-04] MEDS ORDERED: METHADONE HCL 5 MG TABLET (FOR DETOX USE ONLY) ONE (09:34)
[2019-11-04] MEDS ORDERED: METHADONE HCL 10 MG TABLET (FOR DETOX USE ONLY) ONE (09:35)
[2019-11-04] MEDS ORDERED: METHADONE (DETOX) 10 MG, METHADONE (DETOX) 5 MG PO ONE (10:00)
[2019-11-04] MEDS: METHOCARBAMOL 500 MG TABLET PO PRN (10:19)
[2019-11-04] MEDS: BACITRACIN 0.9 GM PACKET TP SCH (10:19)
[2019-11-04] MEDS: hydrOXYzine PAMOATE 25 MG CAPSULE (FP) PO PRN (10:19)
[2019-11-04] MEDS: NICOTINE 21 MG/24 HOURS TOPICAL PATCH TD SCH (10:19)
[2019-11-04] MEDS: PRENATAL VITAMINS W/ FOLIC ACID TABLET (FP) PO SCH (10:20)
--- NOTE | 2019-11-04 12:48 | PN ---
BHS COWS - Scale Resting Pulse: 1= [place] 81-100 Sweatin= Chills/Flushing Restless Observation: 0= Sits Still Pupil Size: 0= Normal to Room Light Bone or Joint Aches: 1= Mild Discomfort Runny Nose/ Eye Tearin= Nasal Congestion GI Upset > 30mins: 0= None Tremor Observation of Outstretched Hands: 1= Tremor Cushing, Not Seen Yawning Observation: 0= None Anxiety or Irritability: 1=Feels Anxious/Irritable Goose Flesh Skin: 0=Smooth Skin COWS Score: 6 BHS Progress Note (SOAP) Subjective: Complaints of anxiety, tremors and sweats. Objective: 11/04/19 12:46 Vital Signs 11/04/19 11/04/19 06:09 08:33 Temperature 99.7 F H 97.1 F L Pulse Rate 66 91 H Respiratory 20 18 Rate Blood Pressure 103/61 100/69 O2 Sat by Pulse 97 Oximetry (%) Laboratory Last Values WBC 7.4 K/mm3 (4.0-10.0) 11/01/19 13:00 RBC 4.24 M/mm3 (4.00-5.60) 11/01/19 13:00 Hgb 12.3 GM/dL (11.7-16.9) 11/01/19 13:00 Hct 36.8 % (35.4-49) D 11/01/19 13:00 MCV 86.7 fl (80-96) 11/01/19 13:00 MCH 29.0 pg (25.7-33.7) 11/01/19 13:00 MCHC 33.4 g/dl (32.0-35.9) 11/01/19 13:00 RDW 15.4 % (11.9-15.9) 11/01/19 13:00 Plt Count 221 K/MM3 (134-434) D 11/01/19 13:00 MPV 9.2 fl (7.5-11.1) 11/01/19 13:00 Sodium 136 mmol/L (136-145) 11/01/19 13:00 Potassium 4.0 mmol/L (3.5-5.1) 11/01/19 13:00 Chloride 99 mmol/L (98-107) 11/01/19 13:00 Carbon Dioxide 32 mmol/L (21-32) 11/01/19 13:00 Anion Gap 5 MMOL/L (8-16) L 11/01/19 13:00 BUN 15.0 mg/dL (7-18) 11/01/19 13:00 Creatinine 0.8 mg/dL (0.55-1.3) 11/01/19 13:00 Est GFR (CKD-EPI)AfAm 119.04 11/01/19 13:00 Est GFR (CKD-EPI)NonAf 102.71 11/01/19 13:00 Random Glucose 135 mg/dL (74-106) H 11/01/19 13:00 Calcium 9.1 mg/dL (8.5-10.1) 11/01/19 13:00 Total Bilirubin 0.4 mg/dL (0.2-1) 11/01/19 13:00 AST 36 U/L (15-37) 11/01/19 13:00 ALT 42 U/L (13-61) 11/01/19 13:00 Alkaline Phosphatase 57 U/L (45-117) 11/01/19 13:00 Total Protein 6.6 g/dl (6.4-8.2) 11/01/19 13:00 Albumin 3.7 g/dl (3.4-5.0) 11/01/19 13:00 Syphilis Serology Non-reactive (NONREACTIVE) 11/01/19 13:00 COVID-19 (ABHIJIT) Not detected (Not Detected) 11/01/19 13:00 HIV Ag/Ab Combo Qual Negative (NEGATIVE) 11/01/19 13:00 labs noted. Assessment: 11/04/19 12:47 Alert and oriented x3, in no acute respiratory distress. Full ROM, ambulatory in the unit without assistance. Skin warm to touch. Withdrawal symptoms. Plan: Continue detox protocol.
[2019-11-04] MEDS: THIAMINE HCL 100 MG TABLET (FP) PO SCH (22:17)
[2019-11-04] MEDS: MELATONIN 5 MG TABLETS PO SCH (22:18)
[2019-11-05] MEDS ORDERED: METHADONE HCL 10 MG TABLET (FOR DETOX USE ONLY) PO ONE (10:00)
[2019-11-05] MEDS: PRENATAL VITAMINS W/ FOLIC ACID TABLET (FP) PO SCH (10:15)
[2019-11-05] MEDS: BACITRACIN 0.9 GM PACKET TP SCH (10:15)
[2019-11-05] MEDS: NICOTINE 21 MG/24 HOURS TOPICAL PATCH TD SCH (10:16)
--- NOTE | 2019-11-05 10:18 | PN ---
BHS COWS - Scale Resting Pulse: 0= [place] 80 or Below Sweatin= No chills or Flushing Restless Observation: 0= Sits Still Pupil Size: 0= Normal to Room Light Bone or Joint Aches: 1= Mild Discomfort Runny Nose/ Eye Tearin= None GI Upset > 30mins: 0= None Tremor Observation of Outstretched Hands: 1= Tremor Malin, Not Seen Yawning Observation: 0= None Anxiety or Irritability: 1=Feels Anxious/Irritable Goose Flesh Skin: 0=Smooth Skin COWS Score: 3 BHS Progress Note (SOAP) Subjective: agitation Objective: 11/05/19 10:17 Vital Signs Temperature 97.8 F 11/05/19 06:02 Pulse Rate 61 11/05/19 06:02 Respiratory Rate 17 11/05/19 06:02 Blood Pressure 105/56 L 11/05/19 06:02 O2 Sat by Pulse Oximetry (%) 96 11/05/19 06:02 aaox3 ambulating no acute distress Assessment: 11/05/19 10:17 withdrawals Plan: continue detox d/c in am
[2019-11-05] MEDS: METHOCARBAMOL 500 MG TABLET PO PRN (22:33)
[2019-11-05] MEDS: THIAMINE HCL 100 MG TABLET (FP) PO SCH (22:33)
[2019-11-05] MEDS: hydrOXYzine PAMOATE 25 MG CAPSULE (FP) PO PRN (22:33)
[2019-11-05] MEDS: MELATONIN 5 MG TABLETS PO SCH (22:34)
[2019-11-06 05:44] VITALS: BP 91/53; PULSE 49; TEMP 98
[2019-11-06] MEDS ORDERED: METHADONE HCL 5 MG TABLET (FOR DETOX USE ONLY) PO ONE (06:00)
--- NOTE | 2019-11-06 09:05 | DS ---
[facility] Detox Discharge Summary Admission Date: 11/01/19 Discharge Date: 11/06/19 - History Present History: Opioid Dependence - Physical Exam Results Vital Signs: Vital Signs Temperature 98.0 F 11/06/19 05:21 Pulse Rate 49 L 11/06/19 05:21 Respiratory Rate 11/06/19 05:21 Blood Pressure 91/53 L 11/06/19 05:21 O2 Sat by Pulse Oximetry (%) 99 11/06/19 05:21 Pertinent Admission Physical Exam Findings: Vital Signs Temperature 98.0 F 11/06/19 05:21 Pulse Rate 49 L 11/06/19 05:21 Respiratory Rate 11/06/19 05:21 Blood Pressure 91/53 L 11/06/19 05:21 O2 Sat by Pulse Oximetry (%) 99 11/06/19 05:21 Laboratory Tests 11/01/19 11/01/19 11/01/19 13:00 13:00 13:00 WBC 7.4 RBC 4.24 Hgb 12.3 Hct 36.8 D MCV 86.7 MCH 29.0 MCHC 33.4 RDW 15.4 Plt Count 221 D MPV 9.2 Sodium 136 Potassium 4.0 Chloride 99 Carbon Dioxide 32 Anion Gap 5 L BUN 15.0 Creatinine 0.8 Est GFR (CKD-EPI)AfAm 119.04 Est GFR (CKD-EPI)NonAf 102.71 Random Glucose 135 H Calcium 9.1 Total Bilirubin 0.4 AST 36 ALT 42 Alkaline Phosphatase 57 Total Protein 6.6 Albumin 3.7 Syphilis Serology COVID-19 (ABHIJIT) HIV Ag/Ab Combo Qual Negative 11/01/19 11/01/19 13:00 13:00 WBC RBC Hgb Hct MCV MCH MCHC RDW Plt Count MPV Sodium Potassium Chloride Carbon Dioxide Anion Gap BUN Creatinine Est GFR (CKD-EPI)AfAm Est GFR (CKD-EPI)NonAf Random Glucose Calcium Total Bilirubin AST ALT Alkaline Phosphatase Total Protein Albumin Syphilis Serology Non-reactive COVID-19 (ABHIJIT) Not detected HIV Ag/Ab Combo Qual labs noted aaox3 ambulating no acute distress lungs CTA - Treatment Hospital Course: Detox Protocol Followed, Detoxed Safely, Responded well, Discharged Condition Good, Rehab Referral Accepted - Medication Discharge Medications: Ambulatory Orders Naloxone HCl [Narcan] 4 mg NS ASDIR PRN #1 spray 10/29/18 - Diagnosis (1) Nicotine dependence Current Visit: Yes Status: Chronic Qualifiers: Nicotine product type: cigarettes Substance use status: uncomplicated Qualified Code(s): F17.210 - Nicotine dependence, cigarettes, uncomplicated (2) Opioid dependence with withdrawal Current Visit: Yes Status: Chronic (3) Weight loss Current Visit: No Status: Acute - AMA Did Patient Leave Against Medical Advice: No
== END 2019-11-06 08:43 | disposition home or self-care (01) | DRG 773 ==
LOC: YASAS 10:19 → Y6N 12:35
PROVIDERS: ADMIT Allergy & Immunology; ATTEND Allergy & Immunology
PROC: HZ2ZZZZ Detoxification Services for Substance Abuse Treatment (ICD-10-PCS; principal; 2019-11-01)
DX: F11.23 Opioid dependence with withdrawal (principal); F17.210 Nicotine dependence, cigarettes, uncomplicated; R63.4 Abnormal weight loss; Z68.26 Body mass index [BMI] 26.0-26.9, adult; S00.81XD Abrasion of other part of head, subsequent encounter; W18.39XD Other fall on same level, subsequent encounter; Z98.890 Other specified postprocedural states
CPT/HCPCS: 36415; 80053; 85027; 86780; 87389; 93005; 93010; U0003

== ENCOUNTER 2020-11-25 10:41 | Inpatient (IN) | payer OTHER ==
[2020-11-25] MEDS ORDERED: NALOXONE (NARCAN) HCL 4 MG/0.1 ML SPRAY NS PRN (11:44)
[2020-11-25 12:38] VITALS: BMI 25.7
[2020-11-25] MEDS ORDERED: MAG HYDROX/AL HYDROX/SIMETH 30 ML UNIT-DOSE CUP PO PRN (13:06)
[2020-11-25] MEDS ORDERED: MENTHOL/PHENOL 1 EACH UD MM PRN (13:06)
[2020-11-25] MEDS ORDERED: cloNIDine HCL 0.1 MG TABLET PO PRN (13:06)
[2020-11-25] MEDS ORDERED: BISMUTH SUBSALICYLATE 262 MG/15 ML BTL PO PRN (13:06)
[2020-11-25] MEDS ORDERED: MAGNESIUM CITRATE 300 ML BOTTLE PO PRN (13:06)
[2020-11-25] MEDS ORDERED: IBUPROFEN 400 MG TABLET (FP) PO PRN (13:06)
[2020-11-25] MEDS ORDERED: ONDANSETRON *ODT* 4 MG TABLET SL PRN (13:06)
[2020-11-25] MEDS ORDERED: methaDONE HCL 10 MG TABLET (FOR DETOX USE ONLY) PO ONE (13:06)
[2020-11-25] MEDS ORDERED: MAGNESIUM HYDROX 2400MG/30ML ORAL SUSPENSION 30 ML CUP PO PRN (13:06)
[2020-11-25] MEDS ORDERED: ACETAMINOPHEN 325 MG TABLET (FP) PO PRN ×2 (13:06)
[2020-11-25] MEDS ORDERED: NICOTINE 10 MG CARTRIDGE (INHALER) IH PRN (13:06)
[2020-11-25] MEDS: diazePAM 5 MG TABLET PO PRN (13:23)
[2020-11-25] MEDS ORDERED: hydrOXYzine PAMOATE 25 MG CAPSULE (FP) PO SCH (14:00)
[2020-11-25] MEDS: PRENATAL VITAMINS W/ FOLIC ACID TABLET (FP) PO SCH (14:19)
[2020-11-25] MEDS: THIAMINE HCL 100 MG TABLET (FP) PO SCH (22:38)
[2020-11-25] MEDS: MELATONIN 5 MG TABLETS PO SCH (22:39)
[2020-11-25 22:49] LABS: HIV INTERPRETATION NEGATIVE (NEGATIVE)
[2020-11-26] MEDS ORDERED: methaDONE HCL 10 MG TABLET (FOR DETOX USE ONLY) ONE (09:34)
[2020-11-26] MEDS: METHOCARBAMOL 500 MG TABLET PO PRN (10:34)
[2020-11-26] MEDS: hydrOXYzine PAMOATE 25 MG CAPSULE (FP) PO PRN ×2 (10:35→22:30)
[2020-11-26] MEDS: PRENATAL VITAMINS W/ FOLIC ACID TABLET (FP) PO SCH (10:35)
[2020-11-26 10:53] LABS: HEMATOCRIT 39.2 % (35.4-49); HEMOGLOBIN 12.9 GM/dL (11.7-16.9); MCH 27.9 pg (25.7-33.7); MCHC 32.9 g/dl (32.0-35.9); MEAN CELL VOLUME 84.8 fl (80-96); MEAN PLT VOLUME 10.1 fl (7.5-11.1); PLATELET COUNT 316 10^3/uL (134-434); RBC 4.62 M/mm3 (4.00-5.60); RDW 15.1 % (11.9-15.9); WHITE BLOOD COUNT 11.2 K/mm3 (4.0-10.0)
[2020-11-26 11:07] LABS: ALBUMIN 3.8 g/dl (3.4-5.0); BLOOD UREA NITROGEN 11.3 mg/dL (7-18); CALCIUM 9.9 mg/dL (8.5-10.1)
[2020-11-26 11:09] LABS: BILIRUBIN,TOTAL 0.4 mg/dL (0.2-1)
[2020-11-26 11:10] LABS: CREATININE 0.8 mg/dL (0.55-1.3)
[2020-11-26 11:12] LABS: TOT PROT 7.2 g/dl (6.4-8.2)
[2020-11-26] MEDS: diazePAM 5 MG TABLET PO PRN (17:26)
[2020-11-26] MEDS: THIAMINE HCL 100 MG TABLET (FP) PO SCH (22:29)
[2020-11-26] MEDS: MELATONIN 5 MG TABLETS PO SCH (22:29)
[2020-11-27] MEDS ORDERED: methaDONE HCL 10 MG TABLET (FOR DETOX USE ONLY) PO ONE (10:00)
[2020-11-27] MEDS: diazePAM 5 MG TABLET PO PRN ×2 (10:24→22:34)
[2020-11-27] MEDS: PRENATAL VITAMINS W/ FOLIC ACID TABLET (FP) PO SCH (10:25)
[2020-11-27] MEDS: THIAMINE HCL 100 MG TABLET (FP) PO SCH (22:32)
[2020-11-27] MEDS: MELATONIN 5 MG TABLETS PO SCH (22:32)
[2020-11-28] MEDS ORDERED: methaDONE HCL 10 MG TABLET (FOR DETOX USE ONLY) ONE (09:21)
[2020-11-28] MEDS: diazePAM 5 MG TABLET PO PRN ×2 (10:18→17:38)
[2020-11-28] MEDS: PRENATAL VITAMINS W/ FOLIC ACID TABLET (FP) PO SCH (10:18)
[2020-11-28] MEDS: MELATONIN 5 MG TABLETS PO SCH (22:06)
[2020-11-28] MEDS: THIAMINE HCL 100 MG TABLET (FP) PO SCH (22:07)
[2020-11-28] MEDS: METHOCARBAMOL 500 MG TABLET PO PRN (22:08)
[2020-11-29] MEDS ORDERED: methaDONE HCL 10 MG TABLET (FOR DETOX USE ONLY) PO ONE (10:00)
[2020-11-29] MEDS: diazePAM 5 MG TABLET PO PRN ×2 (10:14→22:20)
[2020-11-29] MEDS: PRENATAL VITAMINS W/ FOLIC ACID TABLET (FP) PO SCH (10:17)
[2020-11-29] MEDS: THIAMINE HCL 100 MG TABLET (FP) PO SCH (22:20)
[2020-11-29] MEDS: hydrOXYzine PAMOATE 25 MG CAPSULE (FP) PO PRN (22:21)
[2020-11-29] MEDS: MELATONIN 5 MG TABLETS PO SCH (22:21)
[2020-11-30 09:00] VITALS: BP 101/64; PULSE 82; TEMP 96.6
[2020-11-30] MEDS: PRENATAL VITAMINS W/ FOLIC ACID TABLET (FP) PO SCH (09:29)
== END 2020-11-30 12:00 | disposition home or self-care (01) | DRG 773 ==
LOC: YASAS 10:41 → Y3N 13:17
PROVIDERS: ADMIT Allergy & Immunology; ATTEND Allergy & Immunology
PROC: HZ2ZZZZ Detoxification Services for Substance Abuse Treatment (ICD-10-PCS; principal; 2020-11-25)
DX: F11.23 Opioid dependence with withdrawal (principal); F12.20 Cannabis dependence, uncomplicated; F17.210 Nicotine dependence, cigarettes, uncomplicated; F41.9 Anxiety disorder, unspecified; D72.829 Elevated white blood cell count, unspecified
CPT/HCPCS: 36415; 80053; 85027; 86780; 87389; C9803; U0003; U0005

== ENCOUNTER 2020-11-30 12:27 | Inpatient (IN) | payer OTHER ==
[2020-11-30] MEDS ORDERED: MAG HYDROX/AL HYDROX/SIMETH 30 ML UNIT-DOSE CUP PO PRN (14:35)
[2020-11-30] MEDS ORDERED: MAGNESIUM HYDROX 2400MG/30ML ORAL SUSPENSION 30 ML CUP PO PRN (14:35)
[2020-11-30] MEDS ORDERED: IBUPROFEN 400 MG TABLET (FP) PO PRN (14:35)
[2020-11-30] MEDS ORDERED: MAGNESIUM CITRATE 300 ML BOTTLE PO PRN (14:35)
[2020-11-30] MEDS ORDERED: NICOTINE 10 MG CARTRIDGE (INHALER) IH PRN (14:35)
[2020-11-30] MEDS ORDERED: MENTHOL/PHENOL 1 EACH UD MM PRN (14:35)
[2020-11-30] MEDS ORDERED: LOPERAMIDE HCL 2 MG CAPSULE PO PRN (14:35)
[2020-11-30] MEDS ORDERED: ACETAMINOPHEN 325 MG TABLET (FP) PO PRN (14:35)
[2020-11-30] MEDS ORDERED: guaiFENesin 200 MG/10 ML 10 ML UNIT-DOSE CUPS PO PRN (14:35)
[2020-11-30] MEDS ORDERED: hydrOXYzine PAMOATE 25 MG CAPSULE (FP) PO PRN (14:35)
[2020-11-30] MEDS ORDERED: P-EPHED 60MG/TRIPROLIDI 2.5MG TABLET PO PRN (14:35)
[2020-11-30] MEDS: MELATONIN 5 MG TABLETS PO SCH (21:47)
[2020-11-30] MEDS: THIAMINE HCL 100 MG TABLET (FP) PO SCH (21:47)
[2020-12-01] MEDS: PRENATAL VITAMINS W/ FOLIC ACID TABLET (FP) PO SCH (10:23)
[2020-12-01 11:06] LABS: BASO % 0.6 % (0-2.0); EOS % 7.2 % (0-4.5); HEMATOCRIT 39.7 % (35.4-49); HEMOGLOBIN 13.3 GM/dL (11.7-16.9); LYMPH % 31.3 % (8-40); MCH 28.4 pg (25.7-33.7); MCHC 33.6 g/dl (32.0-35.9); MEAN CELL VOLUME 84.7 fl (80-96); MEAN PLT VOLUME 9.2 fl (7.5-11.1); MONO % 11.5 % (3.8-10.2); NEUT % 49.4 % (42.8-82.8); PLATELET COUNT 275 10^3/uL (134-434); RBC 4.69 M/mm3 (4.00-5.60); RDW 14.7 % (11.9-15.9); WHITE BLOOD COUNT 6.5 K/mm3 (4.0-10.0)
[2020-12-01] MEDS: MELATONIN 5 MG TABLETS PO SCH (21:55)
[2020-12-01] MEDS: THIAMINE HCL 100 MG TABLET (FP) PO SCH (21:55)
[2020-12-02 07:01] VITALS: TEMP 98.6
[2020-12-02] MEDS: PRENATAL VITAMINS W/ FOLIC ACID TABLET (FP) PO SCH (10:27)
[2020-12-02 15:02] LABS: EPI CELLS 3 /uL (0-25.1); HYALINE CASTS 0 /uL (0-3.1); PH,URINE 7.5 (5.0-8.0); URINE APPEARANCE CLOUDY; URINE BACTERIA 3 /uL (0-1359); URINE BILIRUBIN NEGATIVE (NEGATIVE); URINE COLOR YELLOW; URINE GLUCOSE (UA) NEGATIVE (NEGATIVE); URINE KETONE NEGATIVE (NEGATIVE); URINE LEUK ESTERASE TRACE (NEGATIVE); URINE NITRITE NEGATIVE (NEGATIVE); URINE PROTEIN NEGATIVE (NEGATIVE); URINE RBC 6 /uL (0-23.9); URINE WBC 2 /uL (0-25.8)
[2020-12-02] MEDS: THIAMINE HCL 100 MG TABLET (FP) PO SCH (23:11)
[2020-12-02] MEDS: MELATONIN 5 MG TABLETS PO SCH (23:11)
[2020-12-03 07:33] VITALS: BP 114/75; PULSE 58
[2020-12-03] MEDS: PRENATAL VITAMINS W/ FOLIC ACID TABLET (FP) PO SCH (10:32)
[2020-12-03] MEDS: THIAMINE HCL 100 MG TABLET (FP) PO SCH (22:05)
[2020-12-03] MEDS: MELATONIN 5 MG TABLETS PO SCH (22:05)
[2020-12-04] MEDS: PRENATAL VITAMINS W/ FOLIC ACID TABLET (FP) PO SCH (10:53)
== END 2020-12-04 11:45 | disposition home or self-care (01) | DRG 772 ==
LOC: YASAS 12:27 → Y3W 12:29
PROVIDERS: ADMIT Allergy & Immunology; ATTEND Allergy & Immunology
PROC: HZ42ZZZ Group Counseling for Substance Abuse Treatment, Cognitive-Behavioral (ICD-10-PCS; principal; 2020-11-30)
DX: F11.20 Opioid dependence, uncomplicated (principal); F12.20 Cannabis dependence, uncomplicated; F17.210 Nicotine dependence, cigarettes, uncomplicated; F41.9 Anxiety disorder, unspecified
CPT/HCPCS: 36415; 81003; 85025

== ENCOUNTER 2021-03-24 08:28 | Inpatient (IN) | payer OTHER ==
[2021-03-24] MEDS ORDERED: cloNIDine HCL 0.1 MG TABLET PO PRN (08:51)
[2021-03-24] MEDS ORDERED: LOPERAMIDE HCL 2 MG CAPSULE PO PRN (08:51)
[2021-03-24] MEDS ORDERED: MENTHOL/PHENOL 1 EACH UD MM PRN (08:51)
[2021-03-24] MEDS ORDERED: METHOCARBAMOL 500 MG TABLET PO PRN (08:51)
[2021-03-24] MEDS ORDERED: NICOTINE 10 MG CARTRIDGE (INHALER) IH PRN (08:51)
[2021-03-24] MEDS ORDERED: BISMUTH SUBSALICYLATE 524 MG/30 ML PO PRN (08:51)
[2021-03-24] MEDS ORDERED: MAG HYDROX/AL HYDROX/SIMETH 30 ML UNIT-DOSE CUP PO PRN (08:51)
[2021-03-24] MEDS ORDERED: MAGNESIUM HYDROX 2400MG/30ML ORAL SUSPENSION 30 ML CUP PO PRN (08:51)
[2021-03-24] MEDS ORDERED: IBUPROFEN 400 MG TABLET (FP) PO PRN (08:51)
[2021-03-24] MEDS ORDERED: MAGNESIUM CITRATE 300 ML BOTTLE PO PRN (08:51)
[2021-03-24] MEDS ORDERED: ACETAMINOPHEN 325 MG TABLET (FP) PO PRN ×2 (08:51)
[2021-03-24 09:31] VITALS: BMI 26.4
[2021-03-24] MEDS ORDERED: methaDONE HCL 10 MG TABLET (FOR DETOX USE ONLY) PO ONE (10:15)
[2021-03-24] MEDS: hydrOXYzine PAMOATE 25 MG CAPSULE (FP) PO SCH ×4 (10:49→22:35)
[2021-03-24] MEDS: PRENATAL VITAMINS W/ FOLIC ACID TABLET (FP) PO SCH (10:50)
[2021-03-24] MEDS: NICOTINE 14 MG/24 HOURS TOPICAL PATCH TD SCH (10:50)
[2021-03-24 14:27] LABS: HEMATOCRIT 47.8 % (35.4-49); HEMOGLOBIN 15.4 GM/dL (11.7-16.9); MCH 27.5 pg (25.7-33.7); MCHC 32.2 g/dl (32.0-35.9); MEAN CELL VOLUME 85.5 fl (80-96); MEAN PLT VOLUME 8.1 fl (7.5-11.1); PLATELET COUNT 289 10^3/uL (134-434); RBC 5.59 M/mm3 (4.00-5.60); RDW 14.4 % (11.9-15.9); WHITE BLOOD COUNT 8.9 K/mm3 (4.0-10.0)
[2021-03-24 14:40] LABS: CALCIUM 9.2 mg/dL (8.5-10.1)
[2021-03-24 14:41] LABS: ALBUMIN 4.1 g/dl (3.4-5.0); BLOOD UREA NITROGEN 14.4 mg/dL (7-18)
[2021-03-24 14:44] LABS: CREATININE 0.9 mg/dL (0.55-1.3)
[2021-03-24 14:46] LABS: BILIRUBIN,TOTAL 0.6 mg/dL (0.2-1); TOT PROT 7.7 g/dl (6.4-8.2)
[2021-03-24] MEDS: THIAMINE HCL 100 MG TABLET (FP) PO SCH (22:35)
[2021-03-24] MEDS: MELATONIN 5 MG TABLETS PO SCH (22:35)
[2021-03-25] MEDS: hydrOXYzine PAMOATE 25 MG CAPSULE (FP) PO SCH ×5 (05:41→23:20)
[2021-03-25] MEDS ORDERED: methaDONE HCL 10 MG TABLET (FOR DETOX USE ONLY) ONE (09:17)
[2021-03-25] MEDS: PRENATAL VITAMINS W/ FOLIC ACID TABLET (FP) PO SCH (10:45)
[2021-03-25] MEDS: NICOTINE 14 MG/24 HOURS TOPICAL PATCH TD SCH (10:47)
[2021-03-25] MEDS: ONDANSETRON *ODT* 4 MG TABLET SL PRN (11:25)
[2021-03-25] MEDS ORDERED: TRIMETHOBENZAMIDE HCL 200MG/2ML INJ IM ONE (23:03)
[2021-03-25] MEDS: THIAMINE HCL 100 MG TABLET (FP) PO SCH (23:19)
[2021-03-25] MEDS: MELATONIN 5 MG TABLETS PO SCH (23:20)
[2021-03-26] MEDS: hydrOXYzine PAMOATE 25 MG CAPSULE (FP) PO SCH ×5 (05:38→23:56)
[2021-03-26] MEDS ORDERED: methaDONE HCL 10 MG TABLET (FOR DETOX USE ONLY) PO ONE (10:00)
[2021-03-26] MEDS: PRENATAL VITAMINS W/ FOLIC ACID TABLET (FP) PO SCH (10:25)
[2021-03-26] MEDS: diazePAM 5 MG TABLET PO PRN (10:26)
[2021-03-26] MEDS: NICOTINE 14 MG/24 HOURS TOPICAL PATCH TD SCH (10:27)
[2021-03-26] MEDS: ONDANSETRON *ODT* 4 MG TABLET SL PRN (10:27)
[2021-03-26] MEDS: MELATONIN 5 MG TABLETS PO SCH (23:56)
[2021-03-26] MEDS: THIAMINE HCL 100 MG TABLET (FP) PO SCH (23:56)
[2021-03-27] MEDS: hydrOXYzine PAMOATE 25 MG CAPSULE (FP) PO SCH ×5 (05:39→23:05)
[2021-03-27] MEDS ORDERED: methaDONE HCL 10 MG TABLET (FOR DETOX USE ONLY) ONE (08:58)
[2021-03-27] MEDS: PRENATAL VITAMINS W/ FOLIC ACID TABLET (FP) PO SCH (10:47)
[2021-03-27] MEDS: diazePAM 5 MG TABLET PO PRN (10:47)
[2021-03-27] MEDS: NICOTINE 14 MG/24 HOURS TOPICAL PATCH TD SCH (10:48)
[2021-03-27] MEDS: ONDANSETRON *ODT* 4 MG TABLET SL PRN (10:49)
[2021-03-27 14:07] LABS: SARS-CoV-2 NAA Not Detected (Not Detected)
[2021-03-27] MEDS: THIAMINE HCL 100 MG TABLET (FP) PO SCH (23:05)
[2021-03-27] MEDS: MELATONIN 5 MG TABLETS PO SCH (23:05)
[2021-03-28] MEDS: hydrOXYzine PAMOATE 25 MG CAPSULE (FP) PO SCH ×5 (05:48→23:02)
[2021-03-28] MEDS ORDERED: methaDONE HCL 10 MG TABLET (FOR DETOX USE ONLY) PO ONE (10:00)
[2021-03-28] MEDS: NICOTINE 14 MG/24 HOURS TOPICAL PATCH TD SCH (11:22)
[2021-03-28] MEDS: PRENATAL VITAMINS W/ FOLIC ACID TABLET (FP) PO SCH (11:22)
[2021-03-28] MEDS: diazePAM 5 MG TABLET PO PRN (11:23)
[2021-03-28] MEDS: THIAMINE HCL 100 MG TABLET (FP) PO SCH (23:02)
[2021-03-28] MEDS: MELATONIN 5 MG TABLETS PO SCH (23:02)
[2021-03-29] MEDS: hydrOXYzine PAMOATE 25 MG CAPSULE (FP) PO SCH (06:36)
[2021-03-29 09:41] VITALS: BP 127/73; PULSE 83; TEMP 97.8
== END 2021-03-29 10:02 | disposition home or self-care (01) | DRG 773 ==
LOC: YASAS 08:28 → Y6N 09:26
PROVIDERS: ADMIT Allergy & Immunology; ATTEND Allergy & Immunology
PROC: HZ2ZZZZ Detoxification Services for Substance Abuse Treatment (ICD-10-PCS; principal; 2021-03-24)
DX: F11.23 Opioid dependence with withdrawal (principal); F12.10 Cannabis abuse, uncomplicated; F17.210 Nicotine dependence, cigarettes, uncomplicated; F41.9 Anxiety disorder, unspecified; R73.9 Hyperglycemia, unspecified; R11.2 Nausea with vomiting, unspecified; R63.4 Abnormal weight loss; Z68.26 Body mass index [BMI] 26.0-26.9, adult
CPT/HCPCS: 36415; 80053; 82947; 83036; 85027; 86780; C9803; Q0162; U0003; U0005

== ENCOUNTER 2022-10-07 09:40 | Inpatient (IN) | payer OTHER ==
[2022-10-07 10:14] VITALS: BMI 26.6
[2022-10-07] MEDS ORDERED: BISMUTH SUBSALICYLATE 524 MG/30 ML PO PRN (11:29)
[2022-10-07] MEDS ORDERED: BENZOCAINE/MENTHOL (CHLORASEPTIC ) LOZENGE MM PRN (11:29)
[2022-10-07] MEDS ORDERED: ACETAMINOPHEN 325 MG TABLET (FP) PO PRN (11:29)
[2022-10-07] MEDS ORDERED: NALOXONE HCL 0.4 MG/ML VIAL IM PRN (11:29)
[2022-10-07] MEDS ORDERED: P-EPHED 60MG/TRIPROLIDI 2.5MG TABLET PO PRN (11:29)
[2022-10-07] MEDS ORDERED: IBUPROFEN 600 MG TABLET (FP) PO PRN (11:29)
[2022-10-07] MEDS ORDERED: MAGNESIUM HYDROX 2400MG/30ML ORAL SUSPENSION 30 ML CUP PO PRN (11:29)
[2022-10-07] MEDS ORDERED: BENZONATATE 200 MG CAPSULE PO PRN (11:29)
[2022-10-07] MEDS ORDERED: ONDANSETRON *ODT* 4 MG TABLET SL PRN (11:29)
[2022-10-07] MEDS ORDERED: MAG HYDROX/AL HYDROX/SIMETH 30 ML UNIT-DOSE CUP PO PRN (11:29)
[2022-10-07] MEDS ORDERED: IBUPROFEN 400 MG TABLET (FP) PO PRN (11:29)
[2022-10-07] MEDS ORDERED: NALOXONE HCL (KLOXXADO) 8 MG SPRAY NS PRN (11:29)
[2022-10-07] MEDS ORDERED: LOPERAMIDE HCL 2 MG CAPSULE PO PRN (11:29)
[2022-10-07] MEDS ORDERED: DICYCLOMINE HCL 10 MG CAPSULE PO PRN (11:29)
[2022-10-07] MEDS ORDERED: guaiFENesin 600 MG TABLET.ER (FP) PO PRN (11:29)
[2022-10-07] MEDS ORDERED: POLYETHYLENE GLYCOL (HEALTHYLAX) 3350 17 GM PACKET PO PRN (11:29)
[2022-10-07] MEDS: CEPHALEXIN MONOHYDRATE 500 MG CAPSULE (UD) PO SCH ×2 (12:21→17:07)
[2022-10-07 14:59] LABS: HEMOGLOBIN 13.1 GM/dL (11.7-16.9); MCH 27.8 pg (25.7-33.7); MCHC 32.6 g/dl (32.0-35.9); MEAN CELL VOLUME 85.1 fl (80-96); MEAN PLT VOLUME 9.3 fl (7.5-11.1); PLATELET COUNT 268 10^3/uL (134-434); RDW 13.3 % (11.9-15.9); WHITE BLOOD COUNT 11.2 K/mm3 (4.0-10.0)
[2022-10-07 15:01] LABS: POTASSIUM 4.8 mmol/L (3.5-5.1)
[2022-10-07 15:07] LABS: CALCIUM 8.5 mg/dL (8.5-10.1)
[2022-10-07 15:08] LABS: ALBUMIN 3.5 g/dl (3.4-5.0); BLOOD UREA NITROGEN 11.3 mg/dL (7-18)
[2022-10-07 15:11] LABS: CREATININE 0.7 mg/dL (0.55-1.3)
[2022-10-07 15:13] LABS: BILIRUBIN,TOTAL 0.3 mg/dL (0.2-1); TOT PROT 7.1 g/dl (6.4-8.2)
[2022-10-07] MEDS: METHOCARBAMOL 500 MG TABLET PO PRN (21:23)
[2022-10-07] MEDS: hydrOXYzine PAMOATE 25 MG CAPSULE (FP) PO PRN (21:23)
[2022-10-07] MEDS: THIAMINE HCL 100 MG TABLET (FP) PO SCH (21:24)
[2022-10-07] MEDS: MELATONIN 5 MG TABLETS PO SCH (21:24)
[2022-10-08] MEDS: CEPHALEXIN MONOHYDRATE 500 MG CAPSULE (UD) PO SCH ×5 (00:17→23:05)
[2022-10-08] MEDS ORDERED: cloNIDine HCL 0.1 MG TABLET PO PRN (09:15)
[2022-10-08] MEDS ORDERED: methaDONE HCL 10 MG TABLET (FOR DETOX USE ONLY) PO ONE (09:30)
[2022-10-08] MEDS: PRENATAL VITAMINS W/ FOLIC ACID TABLET (FP) PO SCH (10:30)
[2022-10-08] MEDS: THIAMINE HCL 100 MG TABLET (FP) PO SCH (22:29)
[2022-10-08] MEDS: MELATONIN 5 MG TABLETS PO SCH (22:30)
[2022-10-09] MEDS: CEPHALEXIN MONOHYDRATE 500 MG CAPSULE (UD) PO SCH ×4 (06:06→23:12)
[2022-10-09] MEDS: PRENATAL VITAMINS W/ FOLIC ACID TABLET (FP) PO SCH (10:29)
[2022-10-09] MEDS: THIAMINE HCL 100 MG TABLET (FP) PO SCH (22:23)
[2022-10-09] MEDS: MELATONIN 5 MG TABLETS PO SCH (22:23)
[2022-10-09] MEDS: METHOCARBAMOL 500 MG TABLET PO PRN (22:23)
[2022-10-09] MEDS: hydrOXYzine PAMOATE 25 MG CAPSULE (FP) PO PRN (22:23)
[2022-10-10] MEDS: CEPHALEXIN MONOHYDRATE 500 MG CAPSULE (UD) PO SCH ×4 (05:45→23:02)
[2022-10-10] MEDS: PRENATAL VITAMINS W/ FOLIC ACID TABLET (FP) PO SCH (09:38)
[2022-10-10] MEDS ORDERED: methaDONE HCL 10 MG TABLET (FOR DETOX USE ONLY) PO ONE (10:00)
[2022-10-10] MEDS: hydrOXYzine PAMOATE 25 MG CAPSULE (FP) PO PRN (22:23)
[2022-10-10] MEDS: MELATONIN 5 MG TABLETS PO SCH (22:23)
[2022-10-10] MEDS: METHOCARBAMOL 500 MG TABLET PO PRN (22:23)
[2022-10-10] MEDS: THIAMINE HCL 100 MG TABLET (FP) PO SCH (22:23)
[2022-10-11] MEDS: CEPHALEXIN MONOHYDRATE 500 MG CAPSULE (UD) PO SCH ×4 (05:57→23:00)
[2022-10-11] MEDS: METHOCARBAMOL 500 MG TABLET PO PRN (10:06)
[2022-10-11] MEDS: hydrOXYzine PAMOATE 25 MG CAPSULE (FP) PO PRN (10:06)
[2022-10-11] MEDS: PRENATAL VITAMINS W/ FOLIC ACID TABLET (FP) PO SCH (10:06)
[2022-10-11] MEDS: THIAMINE HCL 100 MG TABLET (FP) PO SCH (22:11)
[2022-10-11] MEDS: MELATONIN 5 MG TABLETS PO SCH (22:11)
[2022-10-12] MEDS: CEPHALEXIN MONOHYDRATE 500 MG CAPSULE (UD) PO SCH ×4 (05:42→23:00)
[2022-10-12] MEDS ORDERED: methaDONE HCL 10 MG TABLET (FOR DETOX USE ONLY) PO ONE (10:00)
[2022-10-12] MEDS: METHOCARBAMOL 500 MG TABLET PO PRN (10:13)
[2022-10-12] MEDS: PRENATAL VITAMINS W/ FOLIC ACID TABLET (FP) PO SCH (10:13)
[2022-10-12] MEDS: THIAMINE HCL 100 MG TABLET (FP) PO SCH (22:02)
[2022-10-12] MEDS: MELATONIN 5 MG TABLETS PO SCH (22:03)
[2022-10-13] MEDS: CEPHALEXIN MONOHYDRATE 500 MG CAPSULE (UD) PO SCH (05:52)
[2022-10-13 08:41] VITALS: BP 104/76; PULSE 72; RESP 18; TEMP 97.8
== END 2022-10-13 08:55 | disposition home or self-care (01) | DRG 773 ==
LOC: YASAS 09:40 → Y6N 11:53
PROVIDERS: ADMIT Allergy & Immunology; ATTEND Surgery
PROC: HZ2ZZZZ Detoxification Services for Substance Abuse Treatment (ICD-10-PCS; principal; 2022-10-07)
DX: F11.23 Opioid dependence with withdrawal (principal); F17.210 Nicotine dependence, cigarettes, uncomplicated; L02.213 Cutaneous abscess of chest wall
CPT/HCPCS: 36415; 80053; 85027; 86780; 87635; 87811